=== PATIENT | female | born 1980 | race Caucasian/White ===

== ENCOUNTER 2016-03-31 00:01 | Emergency (ER) | payer MEDICAID ==
[2016-03-31] MEDS ORDERED: DIAZEPAM 10 MG/2 ML SYR ONE (02:44)
== END 2016-03-31 04:23 | disposition home or self-care (01) ==
LOC: ER 00:01
CPT/HCPCS: 96372

== ENCOUNTER 2016-04-05 16:24 | Emergency (ER) | payer MEDICAID ==
[2016-04-05] MEDS ORDERED: OPTIRAY 350 100 ML VIAL HMH IV ONE (16:25)
[2016-04-05] MEDS ORDERED: DILAUDID 1 MG/ML AMP ONE (20:33)
[2016-04-05] MEDS ORDERED: ORPHENADRINE 60 MG/2 ML AMP ONE (21:46)
== END 2016-04-05 23:04 | disposition home or self-care (01) ==
LOC: ER 16:24
CPT/HCPCS: 36415; 71010; 74177; 80053; 81003; 85025; 96374; 96375

== ENCOUNTER 2016-04-07 00:24 | Emergency (ER) | payer MEDICAID ==
[2016-04-07] MEDS ORDERED: ORPHENADRINE 60 MG/2 ML AMP ONE (02:43)
[2016-04-07] MEDS ORDERED: ONDANSETRON ODT 4 MG TAB ONE (02:44)
[2016-04-07] MEDS ORDERED: TRAMADOL 50 MG TAB ONE (02:44)
== END 2016-04-07 03:08 | disposition left against medical advice (07) ==
LOC: ER 00:24
DX: R10.11 Right upper quadrant pain (principal); R10.31 Right lower quadrant pain; W19.XXXA Unspecified fall, initial encounter
CPT/HCPCS: 82947